=== PATIENT | female | born 1940 | race Caucasian/White ===

== ENCOUNTER 2017-03-15 09:01 | Day surgery (SDC) | payer MEDICARE, MEDICAID ==
[2017-03-15] VITALS (12 sets, daily range): BP systolic 104–138; BP diastolic 50–81
[~2017-03-15] VITALS: Ht 157.5 cm; Wt 63.2 kg
[2017-03-15] MEDS ORDERED: dextrose 50%-water 50ml dispensing syringe IV PRN ×2 (09:40)
[2017-03-15] MEDS ORDERED: dextrose ORAL solution 15 GM/59 ML bottle PO PRN ×2 (09:40)
[2017-03-15] MEDS ORDERED: normal saline 1000ml 1,000 ML IV SCH (09:40)
[2017-03-15] MEDS ORDERED: MESSAGE TO PHARMACY PO ONE (09:40)
[2017-03-15] MEDS ORDERED: nitroGLYCERIN 0.4mg SUBLingual tab SL PRN (09:40)
[2017-03-15] MEDS ORDERED: insulin Lispro (HumaLOG) vial - multi-dose SQ SCH (09:40)
[2017-03-15] MEDS ORDERED: diphenhydrAMINE 25mg capsule PO PRN (09:40)
[2017-03-15] MEDS ORDERED: LORazepam 0.5 MG tablet PO PRN (09:40)
[2017-03-15] MEDS ORDERED: glucagon, human recombinant 1mg kit SUBCUT PRN (09:40)
[2017-03-15] MEDS ORDERED: CYCL1DRO EACHEYE (10:36)
[2017-03-15] MEDS ORDERED: LORA0.5T PO (10:36)
[2017-03-15] MEDS ORDERED: METF500T PO (10:36)
[2017-03-15] MEDS ORDERED: FAMO20TA8 PO (10:36)
[2017-03-15] MEDS ORDERED: CHOL400T14 PO (10:36)
[2017-03-15] MEDS ORDERED: SITA100T11 PO (10:36)
[2017-03-15] MEDS ORDERED: PROC5TAB56 PO (10:36)
[2017-03-15] MEDS ORDERED: CYAN250014 PO (10:36)
[2017-03-15] MEDS ORDERED: OXYB5TAB11 PO (10:36)
[2017-03-15] MEDS ORDERED: LEVO25TA2 PO (10:36)
[2017-03-15] MEDS ORDERED: TRAV5DRO EACHEYE (10:36)
[2017-03-15] MEDS ORDERED: AMLO2.5T2 PO (10:36)
[2017-03-15] MEDS ORDERED: SENN-202 PO (10:36)
[2017-03-15] MEDS ORDERED: ROSU5TAB PO (10:36)
[2017-03-15] MEDS ORDERED: BUDE10.2 INH (10:36)
[2017-03-15] MEDS ORDERED: FERR325T28 PO (10:36)
[2017-03-15] MEDS ORDERED: ALBU8HFA PO (10:36)
[2017-03-15] MEDS ORDERED: ATEN-169 PO (10:36)
[2017-03-15] MEDS ORDERED: ASPI81TA52 PO (10:36)
[2017-03-15] MEDS ORDERED: LORA10TA7 PO (10:36)
[2017-03-15] MEDS ORDERED: OLME1TAB21 PO (10:36)
[2017-03-15] MEDS ORDERED: EMPA10TA PO (10:36)
[2017-03-15] MEDS ORDERED: OMEP40CA37 PO (10:36)
[2017-03-15] MEDS ORDERED: MELO-100 PO (10:36)
[2017-03-15] MEDS ORDERED: ATOR10TA87 PO (10:36)
[2017-03-15] MEDS ORDERED: DULO-31 PO (10:36)
[2017-03-15] MEDS ORDERED: ALEN70TA48 PO (10:36)
[2017-03-15 11:46] LABS: BASOPHILS % (AUTO) 0.4 % (0-1); EOSINOPHILS # (AUTO) 0.2 X10'3 (0-0.9); EOSINOPHILS % (AUTO) 2.5 % (0-6); HEMATOCRIT 42.5 % (35.0-45.0); HEMOGLOBIN 14.3 g/dl (12.0-16.0); LYMPHOCYTES # (AUTO) 1.9 X10'3 (1.1-4.8); LYMPHOCYTES % (AUTO) 23.8 % (21-51); MEAN CORPUSCULAR HEMOGLOBIN 31.5 PG (27.0-31.0); MEAN CORPUSCULAR HGB CONC 33.6 % (33.0-36.5); MEAN CORPUSCULAR VOLUME 93.8 FL (78-98); MEAN PLATELET VOLUME 8.6 FL (7.4-10.4); MONOCYTES # (AUTO) 0.5 X10'3 (0-0.9); MONOCYTES % (AUTO) 6.3 % (2-12); NEUTROPHILS # (AUTO) 5.3 X10'3 (1.8-7.7); PLATELET COUNT 278 X10'3 (140-440); RED BLOOD COUNT 4.53 X10'6 (4.20-5.60); RED CELL DISTRIBUTION WIDTH 14.1 % (11.5-14.5)
[2017-03-15 11:55] LABS: ALBUMIN 3.7 G/DL (3.4-5.0); ANION GAP 5 (8-16); BLOOD UREA NITROGEN 18 MG/DL (7-18); BUN/CREATININE RATIO 25.7 (6.6-38.0); CHLORIDE 106 MMOL/L (99-107); GLUCOSE 108 MG/DL (70-104); POTASSIUM 3.7 MMOL/L (3.5-5.1); SODIUM 144 MMOL/L (135-145); TOTAL CARBON DIOXIDE 33.3 MMOL/L (24-32); eGFR 81 ML/MIN
[2017-03-15 11:57] LABS: PARTIAL THROMBOPLASTIN TIME 26 SECONDS (22-32); PROTHROMBIN TIME 10.1 SECONDS (9.0-12.0)
[2017-03-15] MEDS ORDERED: midazolam 2 mg/2 ml injection ONE (11:57)
[2017-03-15] MEDS ORDERED: fentaNYL/PF 50MCG/1 ML 2ML syringe ONE (11:57)
[2017-03-15] MEDS ORDERED: LIDOcaine 1%/PF (10mg/ml) 5ml vial ONE (11:57)
[2017-03-15] MEDS ORDERED: iohexol 350 MG/ML 50ML vial IV ONE (11:58)
[2017-03-15] MEDS ORDERED: iohexol 350MG/ML 100ml bottle IV ONE (11:58)
[2017-03-15] MEDS ORDERED: HYDROcodone/acetaminophen 10/325mg tab PO PRN (13:55)
[2017-03-15] MEDS ORDERED: ondansetron/PF 4mg/2ml inj IV PRN (13:55)
[2017-03-15] MEDS ORDERED: acetaminophen 325mg tablet PO PRN (13:55)
[2017-03-15] MEDS ORDERED: OXAZEpam 15mg capsule PO PRN (13:55)
[2017-03-15] MEDS ORDERED: proCHLORperazine 10 MG/2 ml inj IV PRN (13:55)
[2017-03-15] MEDS ORDERED: HYDROcodone/acetaminophen 5mg/325mg tablet PO PRN (13:55)
[2017-03-15] MEDS ORDERED: Insulin Detemir pen SQ SCH (21:00)
== END 2017-03-15 19:05 | disposition home or self-care (01) ==
LOC: SSTAY O 09:01
PROVIDERS: ATTEND Internal Medicine Cardiovascular Disease
DX: I20.9 Angina pectoris, unspecified (principal); J44.9 Chronic obstructive pulmonary disease, unspecified; K21.9 Gastro-esophageal reflux disease without esophagitis; K22.2 Esophageal obstruction; I10 Essential (primary) hypertension; E11.9 Type 2 diabetes mellitus without complications; I25.2 Old myocardial infarction; E78.5 Hyperlipidemia, unspecified; Z79.82 Long term (current) use of aspirin; Z88.6 Allergy status to analgesic agent; Z79.84 Long term (current) use of oral hypoglycemic drugs; Z98.890 Other specified postprocedural states; Z90.710 Acquired absence of both cervix and uterus; Z79.899 Other long term (current) drug therapy; Z86.73 Personal history of transient ischemic attack (TIA), and cerebral infarction without residual deficits; Z79.01 Long term (current) use of anticoagulants
CPT/HCPCS: 36415; 71046; 80048; 82948; 83036; 85025; 85610; 85730; 93458; 99152; A6257; C1760; C1769; J1644; J2001; J2250; J3010; J7030; Q0163; Q9967; A4620